=== PATIENT | female | born 1950 ===

== ENCOUNTER 2017-12-23 11:51 | Emergency (ER) | payer OTHER ==
[2017-12-23 12:03] VITALS: TEMP 97.8; O2SAT 96; BMI 21.1
[2017-12-23 12:11] VITALS: BP 183/92; PULSE 113; RESP 20
--- NOTE | 2017-12-23 12:19 | ED PDOC ---
HPI: Trauma/Fall - HPI Time Seen by Provider: 12/23/17 11:59 Chief Complaint (Nursing): Trauma Chief Complaint (Provider): Left Shoulder Injury History Per: Patient History/Exam Limitations: no limitations Location Of Injury: Left: Shoulder Severity: None Associated Symptoms: denies: LOC Additional Complaint(s): 67 year old female with a apst medical history of hypercholesterolemia presents to the emergency department post fall with a left shoulder injury. The patient reports that while walking she slipped and fell causing injury. ? head injury but patient is currently complaining of headache. PMD: Dr. Pool (Secretary) Past Medical History Reviewed: Historical Data, Nursing Documentation, Vital Signs Vital Signs: Last Vital Signs Temp 97.8 F 12/23/17 11:57 Pulse 113 H 12/23/17 12:11 Resp 20 12/23/17 12:11 BP 183/92 H 12/23/17 12:11 Pulse Ox 96 12/23/17 12:24 - Medical History PMH: Hypercholesterolemia - Surgical History Surgical History: No Surg Hx - Family History Family History: States: Unknown Family Hx - Home Medications Home Medications: Ambulatory Orders Medication Instructions Recorded Naproxen [Naprosyn] 500 mg PO Q12H #20 tab 12/23/17 - Allergies Allergies/Adverse Reactions: Allergies Allergy/AdvReac Type Severity Reaction Status Date / Time Penicillins Allergy RASH Verified 12/23/17 11:57 Review of Systems ROS Statement: Except As Marked, All Systems Reviewed And Found Negative Gastrointestinal: Negative for: Nausea, Vomiting Musculoskeletal: Positive for: Shoulder Pain (left) Neurological: Positive for: Headache. Negative for: Dizziness Physical Exam - Reviewed Nursing Documentation Reviewed: Yes Vital Signs Reviewed: Yes - Physical Exam Appears: Positive for: Non-toxic, No Acute Distress Head Exam: Positive for: ATRAUMATIC, NORMAL INSPECTION, NORMOCEPHALIC Skin: Positive for: Normal Color, Warm, Dry. Negative for: Rash Eye Exam: Positive for: Normal appearance, EOMI, PERRL. Negative for: Nystagmus ENT: Positive for: Normal ENT Inspection. Negative for: Nasal Congestion, Tonsillar Exudate, Tonsillar Swelling Neck: Positive for: Normal, Painless ROM, Supple Cardiovascular/Chest: Positive for: Regular Rate, Rhythm, Chest Non Tender Respiratory: Positive for: Normal Breath Sounds. Negative for: Rales, Rhonchi, Wheezing, Respiratory Distress Gastrointestinal/Abdominal: Positive for: Normal Exam, Bowel Sounds, Soft. Negative for: Tenderness, Guarding, Rebound Back: Positive for: Normal Inspection (No spinal tenderness or deformity to the back). Negative for: L CVA Tenderness, R CVA Tenderness, Vertebral Tenderness Extremity: Negative for: Normal ROM (Mild pain on ROM with flexion), Tenderness , Deformity (no deformity to left shoulder), Swelling Neurologic/Psych: Positive for: Alert (AAO x3), Oriented, Gait. Negative for: Motor/Sensory Deficits - ECG O2 Sat by Pulse Oximetry: 96 (RA) Pulse Ox Interpretation: Normal Medical Decision Making Medical Decision Makin Initial Impression 67 year old female presenting with left shoulder injury Initial Plan: * CT Head w/o Contrast * Ibuprofen 200mg PO * RAD Left Elbow 3 views * RAD Left Shoulder * Reevaluation ? cortical irregularity left humoral shaft. Pt does not wish to wait for official reading. Will place in sling and have pt f/u with PMD Documented by Linda Leal acting as a scribe for Maciel Ruffin MD. All medical record entries made by the Scribe were at my direction and personally dictated by me. I have reviewed the chart and agree that the record accurately reflects my personal performance of the history, physical exam, medical decision making, and the department course for this patient. I have also personally directed, reviewed, and agree with the discharge instructions and disposition. Disposition - Clinical Impression Clinical Impression: Contusion - Patient ED Disposition Is Patient to be Admitted: No Counseled Patient/Family Regarding: Studies Performed, Diagnosis, Need For Followup, Rx Given - Disposition Referrals: Cal Beckham MD [Medical Doctor] - Disposition: Routine/Home Disposition Time: 14:35 Condition: FAIR Prescriptions: Naproxen [Naprosyn] 500 mg PO Q12H #20 tab Instructions: Contusion (DC) Forms: [email or web address] (Malay)
--- NOTE | 2017-12-23 14:21 | CT ---
PROCEDURE: CT HEAD WITHOUT CONTRAST. HISTORY: r/o bleed COMPARISON: None available. TECHNIQUE: Axial computed tomography images were obtained through the head/brain without intravenous contrast. Radiation dose: Total exam DLP = mGy-cm. This CT exam was performed using one or more of the following dose reduction techniques: Automated exposure control, adjustment of the mA and/or kV according to patient size, and/or use of iterative reconstruction technique. FINDINGS: HEMORRHAGE: No intracranial hemorrhage. BRAIN: No mass effect or edema. No atrophy or chronic microvascular ischemic changes. VENTRICLES: Unremarkable. No hydrocephalus. CALVARIUM: Unremarkable. PARANASAL SINUSES: Unremarkable as visualized. No significant inflammatory changes. MASTOID AIR CELLS: Unremarkable as visualized. No inflammatory changes. OTHER FINDINGS: None. IMPRESSION: Normal CT of the Head.
--- NOTE | 2017-12-23 15:31 | RAD ---
PROCEDURE: Radiographs of the Left Shoulder HISTORY: trauma COMPARISON: No prior. FINDINGS: BONES: Normal. No fracture. JOINTS: Normal. Glenohumeral and acromioclavicular joints preserved. No osteoarthritis. SOFT TISSUES: Normal. OTHER FINDINGS: None. IMPRESSION: Normal radiographs of the left shoulder.
--- NOTE | 2017-12-23 15:31 | RAD ---
PROCEDURE: Radiographs of the left elbow. HISTORY: trauma COMPARISON: No prior. FINDINGS: BONES: Normal. No fracture. JOINTS: Normal. No osteoarthritis. SOFT TISSUES: Normal. JOINT EFFUSION: None. OTHER FINDINGS: None IMPRESSION: Unremarkable radiographs of the left elbow.
== END 2017-12-23 14:43 | disposition home or self-care (01) ==
LOC: H.ER 11:51
DX: S40.012A Contusion of left shoulder, initial encounter (principal); W19.XXXA Unspecified fall, initial encounter; Y92.89 Other specified places as the place of occurrence of the external cause; E78.00 Pure hypercholesterolemia, unspecified; Z88.0 Allergy status to penicillin